=== PATIENT | female | born 1980 | race Caucasian/White ===

== ENCOUNTER 2018-05-15 08:28 | Emergency (ER) | payer OTHER, BC | END 2018-05-15 09:15 | disposition home or self-care (01) | LOC: FTE 08:28 | DX: L03.115 Cellulitis of right lower limb (principal); J45.909 Unspecified asthma, uncomplicated; F17.210 Nicotine dependence, cigarettes, uncomplicated | CPT/HCPCS: 99283; Z7502 ==